=== PATIENT | male | born 1965 | race American Indian/Alaskan Native ===

== ENCOUNTER 2017-05-19 07:13 | Emergency (ER) | payer MEDICAID ==
[2017-05-19] MEDS ORDERED: Diphtheria,Pertussis(Acell),Tetanus Vaccine 0.5 ML Syringe IM ONE (08:09)
--- NOTE | 2017-05-19 08:14 | EDM.PDOC ---
ED HPI GENERAL MEDICAL PROBLEM - General Chief Complaint: Laceration Stated Complaint: laceration Time Seen by Provider: 05/19/17 07:55 Source of Information: Reports: Patient, Family, RN History Limitations: Reports: Altered Mental Status - History of Present Illness INITIAL COMMENTS - FREE TEXT/NARRATIVE: This patient is a 51 year old male that presents to the ER. Patient arrives via EMS. Patient reports that the last thing he remembers is being at the bar, drinking, then the bar closing at 2am. He remembers leaving the bar. He thinks, but unsure if he walked home or not. Patient reports then the next thing he remembers is being at his home and being taken to hospital by EMS. The family at bedside reports his significant other found him outside at home laying on the ground. She called family, who is at bedside now, then EMS. Family reports this was about 5:30am this morning. The patient arrives in the ER. He is alert and oriented. He does smell of ETOH, but does not appear intoxicated at this time. Patient reports he has a mild headache and a cut to the back of his head. Patient reports that his significant other made him come to the ER. Patient reports for last few days he has had runny nose, congestion. He denies other complaints. He denies n, v, d, f, cough, neck pain, back pain, chest pain, abd pain, shortness of breath, urinary/bowel changes. Denies other pain complaints other than mild headache. Stroke score is 0. GCS is 15. Patient does not recall if he fell or not. Patient core temperature at arrival is 96.3. The current temperature outside is -22, with windchills at -50. Patient has no signs of frostbite or hypothermia. Onset: Today Onset Date: 05/19/17 Onset Time: 02:00 Location: Reports: Head Front/Back Body Image: 1 - laceration Quality: Reports: Ache Severity: Mild Improves with: Reports: None Worsens with: Reports: None Associated Symptoms: Reports: Confusion, Headaches (mild). Denies: Chest Pain, Cough, cough w sputum, Diaphoresis, Fever/Chills, Loss of Appetite, Malaise, Nausea/Vomiting, Rash, Seizure, Shortness of Breath, Syncope, Weakness Posterior Head Pain Score (Numeric/FACES): 3 - Related Data Allergies Allergy/AdvReac Type Severity Reaction Status Date / Time No Known Allergies Allergy Verified 05/19/17 07:22 Home Meds: Home Meds . [No Known Home Meds] 06/20/13 [History] Past Medical History - Past Health History Medical/Surgical History: Denies Medical/Surgical History Cardiovascular History: Reports: Hypertension Gastrointestinal History: Reports: Cirrhosis Musculoskeletal History: Reports: Fracture - Past Surgical History HEENT Surgical History: Reports: Tonsillectomy Cardiovascular Surgical History: Reports: None GI Surgical History: Reports: None Social & Family History - Family History Family Medical History: Noncontributory - Tobacco Use Smoking Status *Q: Former Smoker Years of Tobacco use: 1 Used Tobacco, but Quit: Yes Month Tobacco Last Used: 6 yrs ago - Recreational Drug Use Recreational Drug Use: No ED ROS GENERAL - Review of Systems Review Of Systems: See Below Constitutional: Reports: No Symptoms HEENT: Reports: Rhinitis, Sinus Problem (mild congestion) Respiratory: Reports: No Symptoms Cardiovascular: Reports: No Symptoms Endocrine: Reports: No Symptoms GI/Abdominal: Reports: No Symptoms : Reports: No Symptoms Musculoskeletal: Reports: No Symptoms. Denies: Neck Pain Skin: Reports: Wound (laceration posterior scalp) Neurological: Reports: Confusion, Headache. Denies: Dizziness, Seizure, Tremors , Difficulty Walking, Weakness, Change in Speech, Gait Disturbance Psychiatric: Reports: No Symptoms Hematologic/Lymphatic: Reports: No Symptoms Immunologic: Reports: No Symptoms ED EXAM, SKIN/RASH Exam: See Below Exam Limited By: No Limitations General Appearance: Alert, WD/WN, No Apparent Distress Eye Exam: Bilateral Eye: EOMI, Normal Inspection, PERRL Ears: Normal External Exam, Normal Canal, Hearing Grossly Normal, Normal TMs Nose: Normal Inspection, Normal Mucosa, No Blood Throat/Mouth: Normal Inspection, Normal Lips, Normal Teeth, Normal Gums, Normal Oropharynx, Normal Voice, No Airway Compromise Head: Other (laceration posterior scalp. ). No: Facial Swelling, Facial Tenderness, Sinus Tenderness Neck: Normal Inspection, Supple, Non-Tender, Full Range of Motion Respiratory/Chest: No Respiratory Distress, Lungs Clear, Normal Breath Sounds, No Accessory Muscle Use, Chest Non-Tender Cardiovascular: Normal Peripheral Pulses, Regular Rate, Rhythm, No Edema, No Gallop, No JVD, No Murmur, No Rub Peripheral Pulses: 2+: Radial (L), Radial (R), Posterior Tibial (L), Posterior Tibial (R) GI/Abdominal: Normal Bowel Sounds, Soft, Non-Tender, No Organomegaly, No Distention, No Abnormal Bruit, No Mass, Pelvis Stable (Male) Exam: Deferred Rectal (Males) Exam: Deferred Back Exam: Normal Inspection, Full Range of Motion. No: CVA Tenderness (L), CVA Tenderness (R), Decreased Range of Motion, Muscle Spasm, Paraspinal Tenderness, Vertebral Tenderness Extremities: Normal Inspection, Normal Range of Motion, Non-Tender, No Pedal Edema, Normal Capillary Refill Neurological: Alert, Oriented, CN II-XII Intact, Normal Cognition, Normal Gait, No Motor/Sensory Deficits Psychiatric: Normal Affect, Normal Mood Skin: Warm, Dry, Normal Color, No Rash, Wound/Incision Location, Skin: Head (posterior scalp) Lymphatic: No Adenopathy ED SKIN PROCEDURES - Laceration/Wound Repair Right Posterior Head Lac/Wound length In cm: 0.5 Appearance: Superficial Distal NVT: Neuro & Vascular Intact Skin Prep: Chlorhexidine (Hibiciens) Exploration/Debridement/Repair: Wound Explored, In a Bloodless Field, Explored to Base Closed with: [place] (2) Tetanus Status Addressed: Yes Complications: No EKG INTERPRETATION EKG Date: 05/19/17 Time: 08:07 Rhythm: NSR Rate (Beats/Min): 91 [place]: Normal P-Wave: Present QRS: Normal ST-T: Normal QT: Normal Comparison: NA - No Prior EKG Course - Vital Signs Last Recorded V/S: Last Vital Signs Temp 96.3 F 05/19/17 07:18 Pulse 88 05/19/17 07:18 Resp 16 05/19/17 07:18 BP 153/94 H 05/19/17 07:18 Pulse Ox 99 05/19/17 07:18 - Orders/Labs/Meds Orders: Active Orders 24 hr Category Date Time Status EKG Documentation Completion [RC] STAT Care 05/19/17 08:05 Active Vaccines to be Administered [RC] PER UNIT ROUTINE Care 05/19/17 08:09 Active Cervical Spine wo Cont [CT] Stat Exams 05/19/17 07:30 Taken Chest 2V [CR] Stat Exams 05/19/17 08:05 Taken Head wo Cont [CT] Stat Exams 05/19/17 07:30 Taken Labs: Laboratory Tests 05/19/17 05/19/17 05/19/17 Range/Units 08:05 08:05 08:05 WBC 4.8 L (5.0-10.0) 10^3/uL RBC 3.87 L (4.50-6.00) 10^6/uL Hgb 13.7 L (14.0-18.0) g/dL Hct 38.4 L (40.0-54.0) % MCV 99.2 H (82.0-94.0) fL MCH 35.4 H (27.0-32.0) pg MCHC 35.7 (33.0-38.0) g/dL RDW Coeff of Hayde 14.0 (11.0-15.0) % Plt Count 47 L* (150-400) 10^3/uL Neut % (Auto) 37.4 (35-85) % Lymph % (Auto) 49.0 (10-55) % [place] % (Auto) 10.2 (0-16) % Eos % (Auto) 1.9 (0-5) % Baso % (Auto) 1.5 (0-3) % Neut # (Auto) 1.80 (1.80-7.00) 10^3/uL Lymph # (Auto) 2.35 (1.00-4.80) 10^3/uL [place] # (Auto) 0.49 (0.00-0.80) 10^3/uL Eos # (Auto) 0.09 (0.00-0.45) 10^3/uL Baso # (Auto) 0.07 10^3/uL Sodium 136 (136-145) mEq/L Potassium 4.1 (3.5-5.0) mEq/L Chloride 102 (98-106) mEq/L Carbon Dioxide 25 (21-32) mmol/L BUN 5 L (7-18) mg/dL Creatinine 0.7 (0.7-1.3) mg/dL Est Cr Clr Drug Dosing 137.03 mL/min Estimated GFR (MDRD) > 60 (>=60) mL/min Glucose 141 H (75-99) mg/dL Calcium 8.4 (8.4-10.1) mg/dL Total Bilirubin 4.6 H (0.0-1.0) mg/dL AST 115 H (15-37) U/L ALT 51 (12-78) U/L Alkaline Phosphatase 199 H (46-116) U/L Troponin I 0.046 (0.00-0.06) ng/mL Total Protein 8.9 H (6.4-8.2) g/dL Albumin 2.6 L (3.4-5.0) g/dL Urine Color Yellow (YELLOW) Urine Appearance Clear (CLEAR) Urine pH 6.5 (4.5-8.0) Ur Specific [place] <= 1.005 (1.003-1.020) Urine Protein Negative (NEGATIVE) mg/dL Urine Glucose (UA) Negative (NEGATIVE) mg/dL Urine Ketones Negative (NEGATIVE) mg/dL Urine Occult Blood Moderate H (NEGATIVE) Urine Nitrite Negative (NEGATIVE) Urine Bilirubin Negative (NEGATIVE) Urine Urobilinogen 2.0 H (0.2-1.0) EU/dL Ur Leukocyte Esterase Negative (NEGATIVE) Urine RBC 5-10 H (0-5) /HPF Urine WBC Not seen (0-5) /HPF Ur Squamous Epith Cells Occasional H (NOT SEEN) /HPF Meds: Medications Discontinued Medications Generic Name Dose Route Start Last Admin Trade Name Freq PRN Reason Stop Dose Admin Diphtheria/Tetanus/Acell Pertussis 0.5 ml 05/19/17 08:09 05/19/17 08:19 Adacel IM 05/19/17 08:10 0.5 ml .ONCE ONE Administration Multivitamins/Minerals 10 ml/ 1,015.2 mls @ 1,000 mls/hr 05/19/17 08:54 05/19 09:14 Folic Acid 1 mg/ Thiamine HCl IV 05/19/17 09:54 1,000 mls/hr 100 mg/ Magnesium Sulfate 2 gm ONETIME ONE Administration / Sodium Chloride - Radiology Interpretation Free Text/Narrative:: Head/cervical ct: Discussed with radiologist: No acute findings. No bleed, no shift. No fx. - Re-Assessments/Exams Free Text/Narrative Re-Assessment/Exam: 05/19/17 08:58 Patient family has reported patient has a history of liver and renal failure. Attempting to find where labs were previously obtained for comparison. 05/19/17 10:25 Were able to find previous labs from February. They are comparable to today, His platelet count was 50s. ALT elevated. I will discharge the patient. Departure - Departure Time of Disposition: 10:27 Disposition: Home, Self-Care 01 Condition: Good Clinical Impression: Scalp laceration Qualifiers: Encounter type: initial encounter Qualified Code(s): S01.01XA - Laceration without foreign body of scalp, initial encounter Head injury Qualifiers: Encounter type: initial encounter Qualified Code(s): S09.90XA - Unspecified injury of head, initial encounter - Discharge Information Instructions: Laceration Care, Adult, [id number], Stitches, [place], or Adhesive Wound Closure, [id number] Referrals: PCP,None [Primary Care Provider] - Forms: ED Department Discharge, Interfacility Transfer EMTALA Additional Instructions: Followup with your primary care provider in about 7 days for staple removal Return to the ER for worsening of condition or any emergent concerns Wash the wound with soap and water twice a day. rinse, pat dry. Tylenol for headache or pain Refrain from alcohol - My Orders Last 24 Hours: My Active Orders 05/19/17 07:30 Cervical Spine wo Cont [CT] Stat Head wo Cont [CT] Stat 05/19/17 08:05 EKG Documentation Completion [RC] STAT Chest 2V [CR] Stat 05/19/17 08:09 Vaccines to be Administered [RC] PER UNIT ROUTINE - Assessment/Plan Last 24 Hours: My Active Orders 05/19/17 07:30 Cervical Spine wo Cont [CT] Stat Head wo Cont [CT] Stat 05/19/17 08:05 EKG Documentation Completion [RC] STAT Chest 2V [CR] Stat 05/19/17 08:09 Vaccines to be Administered [RC] PER UNIT ROUTINE Plan: PLEASE SEE RN NOTE FOR PFSH.
[2017-05-19 08:37] LABS: CHLORIDE,CL 102 mEq/L (98-106); SODIUM,NA 136 mEq/L (136-145)
[2017-05-19] MEDS ORDERED: MVI, Adult with Vitamin K 10 ML, Folic Acid 1 MG, Thiamine 100 MG, Magnesium Sulfate 2 ... IV ONE ×5 (08:54)
== END 2017-05-19 10:44 | disposition home or self-care (01) ==
LOC: CC.ED 07:13
DX: S01.01XA Laceration without foreign body of scalp, initial encounter (principal); S09.90XA Unspecified injury of head, initial encounter; I10 Essential (primary) hypertension; Z23 Encounter for immunization; X58.XXXA Exposure to other specified factors, initial encounter
CPT/HCPCS: 12001; 36415; 70450; 71046; 72125; 80053; 81001; 84484; 85025; 90471; 90715; 93005; 96365; 99284; J3411; J3475; J7030; J3490